=== PATIENT | female | born 1935 | race Caucasian/White ===

== ENCOUNTER 2021-01-30 10:57 | Outpatient (CLI) | payer OTHER ==
[~2021-01-30 10:57] MED LIST: AMBIEN10 MG PO; CLONAZEPAM1 MG PO; EXFORGE 5-160 M1 TAB PO; GLIMEPIRIDE4 MG PO; GLUCOPHAGE XR500 MG PO; JANUMET 50-501 UDTAB PO; PENTOXIFYLLINE400 MG PO; PLAVIX75 MG PO; PRAVACHOL10 MG PO; ROCALTROL0.5 MCG PO; SYNTHROID88 MCG PO; TOPROL XL100 MG PO
== END 2021-01-30 11:11 | disposition home or self-care (01) ==
LOC: MRI 10:57
PROVIDERS: ATTEND Neuromusculoskeletal Medicine & OMM
DX: G93.89 Other specified disorders of brain (principal); F09 Unspecified mental disorder due to known physiological condition; F03.90 Unspecified dementia, unspecified severity, without behavioral disturbance, psychotic disturbance, mood disturbance, and anxiety
CPT/HCPCS: 70551